=== PATIENT | male | born 1960 | race Caucasian/White ===

== ENCOUNTER 2020-03-25 07:14 | Observation (INO) ==
--- NOTE | 2020-03-20 09:31 | Anesthesiology Consultation ---
Date of Service March 20, 2020 Assessment & Plan (1) Encounter for pre-operative examination: - Per assessment on 03/13: Travel screen negative. No known COVID-19 positive contacts or current COVID-19 related symptoms. Surgeon arranged preop COVID (do ne 03/19/20- [place])- results pending. - Hx glidescope intubation: Right TSA (01/28/18): Grade 2 view, Glidescope#4, ETT 7.5 at [facility] Chart Review Chart Review: Acceptable Risk for Surgery and Patient NOT seen in Pre Admission Testing History Surgery Operation Date: 03/25/20 09:25 Proposed Procedures p Right Total Knee Arthroplasty - Kenneth Calles, Height/Weight Height: 6 ft Weight: 115.666 kg Allergies Allergy/AdvReac Type Severity Reaction Status Date / Time ibuprofen [From Advil] AdvReac Mild d/t kidney Verified 03/13/20 10:45 issues oxycodone AdvReac Mild upsets Verified 03/13/20 10:45 stomach Medications Home Medications Medication Instructions Recorded Confirmed Last Taken losartan 100 mg PO QAM 12/20/17 03/13/20 01/27/18 08:00 metoprolol tartrate 75 mg PO BID 12/20/17 03/13/20 01/28/18 08:00 amoxicillin 500 mg tablet 2,000 mg PO ONCE PRN #4 tab 08/03/19 03/13/20 Unknown amlodipine 5 mg tablet 5 mg PO QPM 10/16/19 03/13/20 Unknown sumatriptan succinate 50 mg tablet See Rx Instructions PO .COMPLEX 11/02/19 03/13/20 Unknown #10 tab Past Medical History Medical History (Updated 03/20/20 @ 09:24 by Yenny Bernard) Cardiac murmur as child per patient > no murmur noted per available provider records, no recent echo Chronic kidney disease Stage III- under surveillance by [facility] Closed jaw fracture s/p wiring (1971)- Current full ROM per patient Hypertension Migraine hx Obesity Osteoarthritis of shoulder Post traumatic stress disorder Past Surgical History Surgical History (Updated 03/20/20 @ 09:28 by Yenny Bernard) History of colonoscopy History of hand surgery Right finger skin graft History of herniorrhaphy Umbilical History of open reduction and internal fixation (ORIF) procedure Left tibia (subsequent hardware removal) History of total replacement of right shoulder joint Right TSA (01/28/18): Grade 2 view, Glidescope#4, ETT 7.5 at [facility] Hx of shoulder surgery Right shoulder scope/RCR (10/10/15): Grade view 2, Rockwell 2, ETT 8.0 + PNB at [facility] Hx of sinus surgery x2 (+ polypectomy) Social History Smoking Status: Current every day smoker Smoking cigarettes per day: 15-18 CIGS A DAY Do You Dip or Chew Tobacco: No Hx Alcohol Use: Yes Alcohol type: hard liquor alcohol intake frequency: a few times a week Hx Substance Use: No substance use type: marijuana (weekly) Testing Laboratory Results 04/07/20 WBC 8.45 H/H 17.5/50.1 PLATELETS 211 SODIUM 140 POTASSIUM 4.3 CHLORIDE 108 CO2 28 BUN 21 CREATININE 1.67 GLUCOSE 108 01/02/20 PT 10.9 PTT 28.7 INR 1.0 Electrocardiogram Date: 08/04/19 Findings: + NSR @ (50)
--- NOTE | 2020-03-20 14:54 | History & Physical Report ---
Date of Service March 20, 2020 Assessment & Plan (1) Osteoarthritis of right knee: We will proceed with a right total knee arthroplasty. Postoperatively he will be kept overnight in the hospital for postoperative medical management. We will start him on aspirin for DVT prophylaxis. He plans to use home health upon discharge. History of Present Illness Chief Complaint: Osteoarthritis of the right knee . Primary Care Provider: Miranda Vazquez Elsie Henderson is a pleasant 59-year-old male who is been dealing with chronic increasing right knee pain. He had an ACL and meniscus repair in 2011. He initially did well but he has been having pain since. MRI, x-rays, and physical examination have been diagnostic for advanced osteoarthritis of the right knee. After failing conservative treatment, he has elected to proceed with a right total knee arthroplasty. . Allergies Allergy/AdvReac Type Severity Reaction Status Date / Time ibuprofen [From Advil] AdvReac Mild d/t kidney Verified 03/13/20 10:45 issues oxycodone AdvReac Mild upsets Verified 03/13/20 10:45 stomach Home Medications Medication Instructions Recorded Confirmed Type losartan 100 mg PO QAM 12/20/17 03/13/20 History metoprolol tartrate 75 mg PO BID 12/20/17 03/13/20 History amoxicillin 500 mg tablet 2,000 mg PO ONCE PRN #4 tab 08/03/19 03/13/20 Rx amlodipine 5 mg tablet 5 mg PO QPM 10/16/19 03/13/20 History sumatriptan succinate 50 mg tablet See Rx Instructions PO .COMPLEX 11/02/19 03/13/20 Rx #10 tab Past Med/Surg History Medical History Cardiac murmur as child per patient > no murmur noted per available provider records, no recent echo Chronic kidney disease Stage III- under surveillance by [facility] Closed jaw fracture s/p wiring (1971)- Current full ROM per patient Hypertension Migraine hx Obesity Osteoarthritis of shoulder Post traumatic stress disorder Surgical History History of colonoscopy History of hand surgery Right finger skin graft History of herniorrhaphy Umbilical History of open reduction and internal fixation (ORIF) procedure Left tibia (subsequent hardware removal) History of total replacement of right shoulder joint Right TSA (01/28/18): Grade 2 view, Glidescope#4, ETT 7.5 at [facility] Hx of shoulder surgery Right shoulder scope/RCR (10/10/15): Grade view 2, Rockwell 2, ETT 8.0 + PNB at [facility] Hx of sinus surgery x2 (+ polypectomy) Social History Smoking Status: Current every day smoker Tobacco Type: Cigarettes Cigarettes Per Day: 15-18 CIGS A DAY; Second Hand Exposure: Yes (FATHER SMOKED); Hx Alcohol Use: Yes Alcohol type: hard liquor Hx Substance Use: No Preferred Language: Eritrean Communication Ability: Effective Palliative Care Physician Required: No Beliefs That Will Affect Care: None marital status: Single Current Living Situation: Alone Feels Safe at Home: Yes Assistive Devices: Brace/Splint/Immobilizer and Glasses Review of Systems All systems reviewed & are unremarkable except as noted in HPI & below. Physical Exam On physical examination of the right knee he has a slight varus deformity. He has good motion of 0 to 120 degrees. He has no instability. He has tenderness palpation over the distal medial femoral condyle and over the medial joint line. . Results & Data Results & Data Laboratory Results . Diagnostic Findings X-rays and MRI of the right knee do show advanced osteoarthritis mostly involving the medial compartment. There is joint space narrowing, osteophyte formation, and oima-lo-xixy articulation. PG Care Time/CCT Total # of Minutes Spent Total Time Spent with Patient: Total time spent is greater than 50% in coordination of care (as documented) at patient's floor/unit and/or counseling patient: Coding Level of Care Code None Diagnoses Osteoarthritis of right knee M17.11
[~2020-03-25 07:14] MED LIST: ACETAMINOPHEN 500 MG TAB PO SCH; BUPIVACAINE 0.25% 30 ML VIAL ONE; BUPIVACAINE 0.5 % 5 MG/1 ML PF 10ML VIAL ONE; FAMOTIDINE 20 MG TAB PO SCH; GABAPENTIN 600 MG DOSE PO SCH; LR 500ML BOLUS, THEN 15ML/HR IV SCH; LR 60ML/HR IV SCH; ROPIVACAINE 0.5% HCL/PF 150 MG, BUPIVACAINE 0.75% MPF 20 ML, EPINEPHrine 30MG/30ML (OR ... INSTIL SCH; TRANEXAMIC ACID 1,000 MG **IV Intra-op IV SCH; TRANEXAMIC ACID 1,000 MG **IV Pre-op IV SCH; ceFAZolin 2000MG 2,000 MG/15 ML SYR IV SCH; dexAMETHasone 4 MG TAB PO SCH
[2020-03-25] MEDS ORDERED: MIDAZOLAM HCL 1 MG/ML 2ML VIAL ONE ×2 (08:07)
[2020-03-25] MEDS ORDERED: LIDOCAINE HCL 2% 2 ML VIAL/AMP(20MG/ML) INFIL ONE (08:07)
[2020-03-25] MEDS ORDERED: PROPOFOL IV EMULSION 10 MG/ML 20 ML VIAL IV ONE (08:07)
[2020-03-25] MEDS ORDERED: fentaNYL citrate 100 MCG/2 ML VIAL ONE (08:07)
[2020-03-25] MEDS ORDERED: ATROPINE SULFATE 0.1 MG/ML 10ML SYR IV PRN (08:22)
[2020-03-25] MEDS ORDERED: ONDANSETRON INJ 2 MG/ML 2 ML VIAL IV PRN ×2 (08:22→12:41)
[2020-03-25] MEDS ORDERED: fentaNYL citrate 100 MCG/2 ML VIAL IV PRN (08:22)
[2020-03-25] MEDS ORDERED: ePHEDrine sulfate 50 MG/ML AMP IV PRN (08:22)
--- NOTE | 2020-03-25 09:34 | History & Physical Bridge Note ---
Date of Service March 25, 2020 History & Physical Bridge Note I have examined the patient, reviewed the History & Physical and in the interval since the performance of the History & Physical I have noted the following changes of clinical significance: no changes noted
[2020-03-25] MEDS ORDERED: ORTHO JOINT ANESTHETIC ONE (09:41)
--- NOTE | 2020-03-25 09:47 | History & Physical Report ---
Date of Service March 25, 2020 Assessment & Plan (1) Osteoarthritis of right knee: We will proceed with a right total knee arthroplasty. Postoperatively he will be kept overnight in the hospital for postop medical management. We will use aspirin for DVT prophylaxis. He plans to use home health upon discharge. History of Present Illness Chief Complaint: Osteoarthritis right knee. Primary Care Provider: Miranda George Henderson is a pleasant 59-year-old male who is been dealing with chronic increasing right knee pain. He had an ACL and meniscus repair in 2011. He initially did well but he has been having pain since. MRI, x-rays, and physical examination have been diagnostic for advanced osteoarthritis of the right knee. After failing conservative treatment, he has elected to proceed with a right total knee arthroplasty. . . Allergies Allergy/AdvReac Type Severity Reaction Status Date / Time ibuprofen [From Advil] AdvReac Mild d/t kidney Verified 03/25/20 07:31 issues Home Medications Medication Instructions Recorded Confirmed Type losartan 100 mg PO QAM 12/20/17 03/25/20 History metoprolol tartrate 75 mg PO BID 12/20/17 03/25/20 History amoxicillin 500 mg tablet 2,000 mg PO ONCE PRN #4 tab 08/03/19 03/25/20 Rx amlodipine 5 mg tablet 5 mg PO QPM 10/16/19 03/25/20 History sumatriptan succinate [Imitrex] See Rx Instructions PO .COMPLEX 03/25/20 03/25/20 History Past Med/Surg History Medical History Cardiac murmur as child per patient > no murmur noted per available provider records, no recent echo Chronic kidney disease Stage III- under surveillance by [facility] Closed jaw fracture s/p wiring (1971)- Current full ROM per patient Hypertension Migraine hx Obesity Osteoarthritis of shoulder Post traumatic stress disorder Surgical History History of colonoscopy History of hand surgery Right finger skin graft History of herniorrhaphy Umbilical History of open reduction and internal fixation (ORIF) procedure Left tibia (subsequent hardware removal) History of total replacement of right shoulder joint Right TSA (01/28/18): Grade 2 view, Glidescope#4, ETT 7.5 at [facility] Hx of shoulder surgery Right shoulder scope/RCR (10/10/15): Grade view 2, Rockwell 2, ETT 8.0 + PNB at [facility] Hx of sinus surgery x2 (+ polypectomy) Social History Smoking Status: Current every day smoker Tobacco Type: Cigarettes Cigarettes Per Day: 15-18 CIGS A DAY; Second Hand Exposure: Yes (FATHER SMOKED); Do You Dip or Chew Tobacco: No; Tobacco Cessation Education Requested by Patient: No Hx Alcohol Use: Yes Alcohol type: hard liquor Hx Substance Use: No Preferred Language: Yakut Communication Ability: Effective Fab[employer] Required: No Beliefs That Will Affect Care: None marital status: Single Current Living Situation: Alone Feels Safe at Home: Yes Safety Concerns: Feels Safe At This Time Assistive Devices: Brace/Splint/Immobilizer and Glasses Review of Systems All systems reviewed & are unremarkable except as noted in HPI & below. Physical Exam On physical examination of the right knee, he has a slight varus deformity. He is tenderness palpation of the distal medial femoral condyle and in the patellofemoral region. The skin quality looks good.. Constitutional WD/WN, vitals as above Eyes PERRL, conjunctivae normal, anicteric sclerae ENMT external ear and nose normal, oropharynx normal Neck trachea midline, no thyromegaly Respiratory normal respiratory effort Cardiovascular RRR, no murmur, no edema Gastrointestinal (Abdomen) normal bowel sounds, soft, nontender, no hepatosplenomegaly Psychiatric A+Ox3, euthymic affect Results & Data Results & Data Laboratory Results . Diagnostic Findings X-rays of the right knee do show some medial compartmental arthritis and some patellofemoral arthritis.. PG Care Time/CCT Total # of Minutes Spent Total Time Spent with Patient: Total time spent is greater than 50% in coordination of care (as documented) at patient's floor/unit and/or counseling patient: Coding Level of Care Code None Diagnoses Osteoarthritis of right knee M17.11
--- NOTE | 2020-03-25 11:22 | Operative Report ---
PG Post Operative Report Pre & Post Diagnosis Operation Date: 03/25/20 09:25 Pre-Op Diagnosis: Degenerative Joint Disease Right Knee Post-Op Diagnosis: Degenerative Joint Disease Right Knee I identified the patient and participated in the time-out.: Yes Procedure Operation Date: 03/25/20 09:25 Actual Procedures p Right Total Knee Arthroplasty(Right) - Kenneth Calles DO Surgeon Kenneth Calles DO Angle Bender Kenneth Trevizo PAC Estimated Blood Loss 10 Findings Consistent with Post-Op Diagnosis Specimens Right femoral and tibial bone Complications none Disposition Disposition: Recovery Room Indications Santiago is a pleasant 59-year-old male who had his right ACL reconstructed in 2011. Unfortunately he has gone on to develop osteoarthritis of the right knee. After failing conservative treatment, he elected proceed with a right total knee arthroplasty. Description of Procedure Implants used: I used a Doretha Persona total knee arthroplasty system with a size 10 standard femur, G tibia, 32 patella, and a size 12 medial congruent polyethylene bearing. All components were cemented in place with Palacos G cement. Santiago arrived [facility] for the above procedure. He was seen in the preoperative holding area and the operative extremity was identified and signed. He was given a preoperative antibiotic, TXA, a spinal anesthetic and an adductor nerve block. He was taken back to the operating room and laid on the table in supine position. He was given basic sedation. The operative knee was then prepped and draped in sterile fashion. A timeout was done, and the patient and the operative extremity was properly identified. A midline incision was made directly over the patella. Dissection was taken down to the extensor mechanism. A subvastus arthrotomy was used. The medial retinaculum was released and the fat pad was mostly excised. The knee was flexed and the ACL, PCL, and meniscus were removed. A drill was sent down the center of the femoral canal followed by an intramedullary paul. Off that paul a distal femoral cutting block was placed. 9 mm was resected off the distal femur at 5 of valgus. A posterior referencing AP sizing guide was then placed on the distal femur. The femur measured to be a size 10 standard. 2 drill holes were placed in 3 of external rotation. A 4-in-1 cutting block was then impacted into place. Anterior, posterior, and chamfer cuts were then made. The proximal tibia was then exposed. An external tibial alignment guide was placed. A tibial cut guide was then anchored in place and the proximal tibia was then resected. The posterior aspect of the knee was then opened up and any additional meniscus fragments and osteophytes were removed. The tibia measured to be a size G. The tibial plate was then placed in the appropriate rotation and the tibia was drilled and punched. Trial components were then placed. I used a size 12 medial congruent polyethylene insert. The knee was brought through a full range of motion and felt to be stable. The peg holes for the femoral component were then drilled. The patella was then everted and 9 mm was resected off the posterior aspect of the patella. The patella measured to be a size 32. 3 peg holes were then drilled. A trial patella was placed. The knee was once again brought through a full range of motion and felt to be stable. Trial components were then removed. The surrounding soft tissues were injected with 100 cc of an orthopedic pain control cocktail. All components were then cemented into place with Palacos G cement. The final polyethylene insert was then snapped into place. Once cement was dry the tourniquet was deflated. Hemostasis was obtained. A dilute betadyne lavage was then done for 3 minutes. The joint was then irrigated with normal saline solution. The subvastus arthrotomy was then closed with #1 Vicryl suture. The skin was closed with 2-0 Vicryl, 3-0V lock suture, and keshia. A Silverlon and a soft compressive dressing were placed. He was then transferred to a hospital bed and taken to the postanesthesia care unit in stable condition. He tolerated the procedure well. Kenneth Trevizo PA-C, was present for the entire procedure. He was critical for patient positioning, prepping, draping, retraction exposure, wound closure and application of sterile dressing. I attest to the content of the Intraoperative Record and any orders documented therein. Any exceptions are noted below.
--- NOTE | 2020-03-25 12:08 | XRay Report ---
RIGHT KNEE 2 VIEWS History: Right total knee arthroplasty. Degenerative arthritis. Postop. FINDINGS: The patient is status post a right total knee arthroplasty. The hardware is intact. No frac ture or dislocation. Skin keshia are in place. IMPRESSION: Right total knee arthroplasty. No evidence for hardware complication. ACT 112: Negative or not required by law. Electronically signed by: Chaitanya Haynes M.D. 03/25/2020 12:07 PM
[2020-03-25] MEDS ORDERED: HYDROmorphone INJ 0.5 MG/0.5 ML SYR IV PRN (12:41)
[2020-03-25] MEDS ORDERED: bisacodyL 10 MG SUPP PR PRN (12:41)
[2020-03-25] MEDS ORDERED: NALOXONE HCL 0.4 MG/1 ML VIAL/CARP IV PRN (12:41)
[2020-03-25] MEDS ORDERED: METOCLOPRAMIDE HCL INJ 5 MG/ML 2 ML VIAL IV PRN (12:41)
[2020-03-25] MEDS ORDERED: MAGNESIUM HYDROXIDE SUSP 30 ML UDC PO PRN (12:41)
[2020-03-25] MEDS ORDERED: oxyCODONE HCL IR 5 MG TAB (IMMEDIATE RELEASE) PO PRN (12:41)
[2020-03-25] MEDS ORDERED: SUMAtriptan succinate 50 MG TAB PO PRN (12:41)
[2020-03-25] MEDS ORDERED: AMOXICILLIN 500 MG CAP PO PRN (13:20)
--- NOTE | 2020-03-25 13:42 | Anesthesiology Progress Note ---
Date of Service March 25, 2020 Anesthesia Post Procedure Vital Signs Vital Signs: Temp Pulse Pulse Pulse Resp BP BP 03/25/20 13:37 64 16 118/82 03/25/20 12:15 36.3 C L 67 19 115/73 03/25/20 12:05 66 12 98/72 L 03/25/20 11:55 69 20 97/69 L 03/25/20 11:45 66 11 L 106/73 03/25/20 11:35 36.4 C L 68 16 105/77 03/25/20 08:10 36.6 C 71 20 145/114 H 03/25/20 07:38 36.7 C 69 20 144/109 H Pulse Ox 03/25/20 13:37 96 03/25/20 12:15 97 03/25/20 12:05 95 03/25/20 11:55 93 03/25/20 11:45 95 03/25/20 11:35 95 03/25/20 08:10 95 03/25/20 07:38 95 Transfer of Care Handoff Completed per policy Notes Mental Status: alert / awake / arousable and participated in evaluation Patient Amnestic to Procedure: Yes Nausea / Vomiting: adequately controlled Pain: adequately controlled Airway Patency, RR, SpO2: stable & adequate BP & HR: stable & adequate Hydration State: stable & adequate Neuraxial Anesthesia: was administered and sensory block is resolving Anesthetic Complications: no major complications apparent and Pt Satisfied with anesthetic care
[2020-03-25] MEDS: ACETAMINOPHEN 500 MG TAB PO SCH ×2 (14:32→21:09)
[2020-03-25] MEDS: ceFAZolin 2000MG 2,000 MG/15 ML SYR IV SCH (17:59)
[2020-03-25] MEDS: SODIUM CHLORIDE 0.9% 1000ML 1,000 ML IV SCH (18:39)
[2020-03-25] MEDS: DOCUSATE SODIUM 100 MG CAP PO SCH (20:36)
[2020-03-25] MEDS: METOPROLOL TARTRATE 25 MG TAB PO SCH (20:37)
[2020-03-25] MEDS: ASPIRIN 81 MG ECTAB PO SCH (20:37)
[2020-03-25] MEDS ORDERED: SENNA 8.6 MG TAB PO SCH (21:00)
[2020-03-25] MEDS ORDERED: amLODIPine BESYLATE 5 MG TAB PO SCH (21:00)
[2020-03-26] MEDS: SODIUM CHLORIDE 0.9% 1000ML 1,000 ML IV SCH (00:38)
[2020-03-26] MEDS: ceFAZolin 2000MG 2,000 MG/15 ML SYR IV SCH (03:33)
[2020-03-26] MEDS: ACETAMINOPHEN 500 MG TAB PO SCH (05:32)
[2020-03-26 06:09] LABS: Hematocrit (blood only) 43.1 % (42-52); Hemoglobin 15.3 g/dL (14.0-18.0); Mean Corpuscular Hemoglobin 31.4 pg (25-34); Mean Corpuscular Hgb Conc 35.5 g/dL (32-36); Mean Corpuscular Volume 88.3 fL (80-100); Mean Platelet Volume 11.6 fL (7.4-10.4); Platelet Count 174 K/uL (130-400); RDW Coefficient of Variation 12.5 % (11.5-14.5); RDW Standard Deviation 40.1 fL (36.4-46.3); Red Blood Count 4.88 M/uL (4.7-6.1); White Blood Count 17.15 K/uL (4.8-10.8)
[2020-03-26 06:31] LABS: BUN Creatinine Ratio 14.8 (10-20); Calcium 8.9 mg/dl (8.5-10.1); Creatinine Clr Calc Pharmacy 68.1 ml/min; Est GFR (African American) 54.2; Est GFR (Non-African American) 46.8; Potassium 4.5 mmol/L (3.5-5.1)
--- NOTE | 2020-03-26 06:47 | Orthopedic Progress Note ---
Date of Service March 26, 2020 Assessment & Plan (1) Status post right knee replacement: Overall he is doing well. Is not having much pain in the right knee. He he is on aspirin for DVT prophylaxis. He will be seen by physical therapy this morning for ambulation and range of motion exercises. He can be discharged home later today. He will follow-up with orthopedics in 2 weeks. Dianelys Henderson was seen and examined at bedside this morning. Overall he is doing very well. Is not having much pain in the right knee. He is already been up and ambulating. He has no complaints. . Review of Systems All systems reviewed & are unremarkable except as noted in HPI & below. Physical Exam On physical examination of the right knee, the dressing is clean and dry. He has active dorsiflexion and plantarflexion of his right ankle. Sensations intact throughout. . Results & Data Results & Data Laboratory Results H & H 03/26/20 Range/Units 05:26 Hgb 15.3 (14.0-18.0) g/dL Hct 43.1 (42-52) % . Diagnostic Findings Postoperative x-rays of the right knee show the prosthesis to be in anatomic alignment without any evidence of fracture, dislocation, or loosening. . PG Care Time/CCT Total # of Minutes Spent Total Time Spent with Patient: Total time spent is greater than 50% in coordination of care (as documented) at patient's floor/unit and/or counseling patient: Coding Level of Care Code 38655 Post Operative Follow-Up Diagnoses Status post right knee replacement Z96.651
--- NOTE | 2020-03-26 06:48 | Discharge Summary ---
Date of Service March 26, 2020 Admission HPI (Per Admitting) Santiago is a pleasant 59-year-old male who is been dealing with chronic increasing right knee pain. He had an ACL and meniscus repair in 2011. He initially did well but he has been having pain since. MRI, x-rays, and physical examination have been diagnostic for advanced osteoarthritis of the right knee. After failing conservative treatment, he has elected to proceed with a right total knee arthroplasty. . . Admission Exam (Per Admitting) On physical examination of the right knee, he has a slight varus deformity. He is tenderness palpation of the distal medial femoral condyle and in the patellofemoral region. The skin quality looks good.. Principal Diagnosis Same as "Discharge Diagnosis" noted below under Discharge Instructions. Discharge Exam On physical examination of the right knee, the dressing is clean and dry. He has active dorsiflexion and plantarflexion of his right ankle. Sensations intact throughout. . Discharge Data Consultations 03/25/20 12:41 Consult Case Management - Discharge Planning Routine Procedures Performed Operation Date: 03/25/20 09:25 Actual Procedures p Right Total Knee Arthroplasty(Right) - Kenneth Calles DO Ordered Studies 03/25/20 05:00 US - OR guided needle placemen Routine Hospital Course (1) Status post right knee replacement: On March 25, 2020 Santiago arrived at [facility] and underwent a right knee replacement without complication. He had a spinal anesthetic and a nerve block. Postoperatively he was transferred to the general orthopedic floors. He was started on aspirin for DVT prophylaxis. His hospital course was uneventful. On postop day #1 his H&H was stable and his pain was well controlled. He was able to participate well with physical therapy doing ambulation and range of motion exercises. He was then discharged to home. He will follow-up with orthopedics in 2 weeks. PG Care Time/CCT Total # of Minutes Spent Total Time Spent with Patient: Total time spent is greater than 50% in coordination of care (as documented) at patient's floor/unit and/or counseling patient: Discharge Plan Discharge Items Patient Disposition: Home - Home Health Services Reason For Visit: Degenerative Joint Disease Right Knee Discharge Diagnosis: Right knee replacement Activity: As commented below Non-emergency contact: Surgeon Call non-emergency contact if: your wound has increased redness and your wound has increased drainage Follow-up/Referrals: Miranda Zimmerman PA-C [Primary Care Provider] - Diet: Regular Addtl Attending Provider Instructions: Activity and Therapy Recommendations: * If you are using [facility] then therapy will be provided at your home until they feel you have accomplished all of your goals. * If you are using [facility] then Physical Therapy will be provided until they feel you are ready to start Outpatient Physical Therapy. * If you are not using home therapy then Outpatient Physical Therapy should start about 3-5 days from your day of surgery. Therapy will last about 6-10 weeks * It is important not to put a pillow under your knee when you are relaxing or sleeping. It is just as important to make sure you are getting your knee perfectly straight as it is to regain your knee bend. * You were shown a series of exercises in the hospital. Do these exercises three times each day including the exercises you were shown in physical therapy. * Get up and walk several times each day. For the first four weeks, try not to stand or walk for more than one hour at a time. If you do stand or walk for more than one hour, you will not hurt anything, but your leg will likely swell. * As you feel comfortable, you may change from the walker or crutches to a cane and then to independent walking. Medications: * Narcotic You will likely be sent home from the hospital with a prescription for the narcotic pain medication that worked best throughout your stay. * Aspirin Most patients will be required to take Aspirin 81mg twice a day for 6 weeks after surgery. This is obtained [id number] and a prescription is not necessary. * Other medications may be prescribed for specific circumstances. If you have any questions, please call the office at . * Resume previous home medications unless otherwise instructed TEDs/Elastic Stockings: The white elastic stockings help limit swelling and prevent blood clots from forming in your legs.~ The more you wear them, the more they work. Wear them for six weeks. Dressing Care: Leave the Silverlon dressing in place for 7 days. After 7 days you may remove the dressing. If the incision is not draining then you may leave the keshia open to air. If there is a little bit of drainage or if the keshia are getting stuck on your clothing then cover the incision with a dry dressing. The keshia will be removed at your 2 week follow-up appointment. Showering: You may shower with the Silverlon dressing in place. Do not let the shower spray hit the dressing directly. Pat the Silverlon dressing dry. If the dressing becomes wet underneath, then simply remove the dressing. Keep t he incision dry until you are 7 days out from the day of surgery. After 7 days you may remove the Silverlon dressing and shower with the keshia exposed. Let soapy water run over the keshia and pat them dry. Do not scrub or soak the incision. Things To Watch For: * Drainage from the incision site that occurs more than one week after your surgery. * Increased redness at the incision site. * Fever above 102 degrees Fahrenheit. * Unusual chest pain or shortness of breath. * Call [facility] at with any of the above problems Follow-Up Visit: Follow-up with Dr. Calles's PA (Kenneth Trevizo) 2-3 weeks after your day of surgery. He will remove your keshia and answer any questions. If you have any additional questions or concerns, Dr Calles is usually in the office at the same time and will be available An appointment was probably scheduled when you signed-up for surgery in the office. If you have any questions call Office Instructions: More detailed instructions as well as Frequently Asked Questions were provided in a folder by our office when you signed-up for surgery. Please review these instructions when you get home. If you have any further questions or concerns, please feel free to call the office at [phone] Pending Studies at Discharge: No Stand-Alone Forms: My [facility], Smoking Cessation Medications and DC Order Prescriptions: New hydrocodone-acetaminophen 7.5-325 mg tablet 1 tab PO Q6H PRN (Reason: pain) Qty: 60 RF: 0 aspirin 81 mg Tablet,Delayed Release (Dr/Ec) 81 mg PO BID 42 Days Qty: 0 RF: 0 Continued amoxicillin 500 mg tablet 2,000 mg PO ONCE PRN (Reason: prophylaxis) Qty: 4 RF: 2 amlodipine 5 mg tablet 5 mg PO QPM RF: 0 metoprolol tartrate 50 mg Tablet 75 mg PO BID RF: 0 losartan 100 mg Tablet 100 mg PO QAM RF: 0 sumatriptan succinate [Imitrex] 50 mg tablet See Rx Instructions PO .COMPLEX RF: 0 Discharge Orders: Discharge Order (Routine); Ordered 03/26/20 Ordered By: Kenneth Calles Admission Data Admit Date/Time: 03/25/20 11:36 Attending Provider: Kenneth Calles Admit Provider: Kenneth Calles Primary Care Provider: Miranda Zimmerman Other Providers: [facility] ; [facility]
[2020-03-26] MEDS ORDERED: dexAMETHasone 4 MG TAB PO SCH (08:00)
[2020-03-26] MEDS: ASPIRIN 81 MG ECTAB PO SCH (08:40)
[2020-03-26] MEDS: DOCUSATE SODIUM 100 MG CAP PO SCH (08:41)
[2020-03-26] MEDS: METOPROLOL TARTRATE 25 MG TAB PO SCH (08:41)
[2020-03-26] MEDS ORDERED: LOSARTAN POTASSIUM 50 MG TAB PO SCH (09:00)
[2020-03-26] MEDS ORDERED: MULTIVITAMIN TAB PO SCH (09:00)
== END 2020-03-26 11:26 | disposition home health service (06) ==
LOC: ASU 07:14 → 3E 07:14
DX: Z68.36 Body mass index [BMI] 36.0-36.9, adult; I12.9 Hypertensive chronic kidney disease with stage 1 through stage 4 chronic kidney disease, or unspecified chronic kidney disease; E66.9 Obesity, unspecified; M17.11 Unilateral primary osteoarthritis, right knee; Z11.59 Encounter for screening for other viral diseases; N18.30 Chronic kidney disease, stage 3 unspecified; Z79.899 Other long term (current) drug therapy; F17.210 Nicotine dependence, cigarettes, uncomplicated; Z88.6 Allergy status to analgesic agent; Z88.5 Allergy status to narcotic agent